=== PATIENT | male | born 1960 | race Caucasian/White ===

== ENCOUNTER → 2022-03-20 | Outpatient (CLI) | payer BC | LOC: RAD 07:45 | DX: M48.02 Spinal stenosis, cervical region (principal); M54.12 Radiculopathy, cervical region; Z98.1 Arthrodesis status ==

== ENCOUNTER → 2022-05-04 | Outpatient (CLI) | payer BC | LOC: RAD 14:52 | DX: M43.22 Fusion of spine, cervical region (principal); M54.12 Radiculopathy, cervical region | CPT/HCPCS: A9575 ==